=== PATIENT | female | born 1970 | race Caucasian/White ===

== ENCOUNTER → 2016-09-03 | Outpatient (CLI) | payer OTHER ==
[~2016-09-03] MED LIST: ATIVAN1 MG PO; IRON325 M1 PO; MAXARON FORTE1 CAP PO; NIFEREX-150150 MG PO; PERCOCET 325 MG1 TA2 PO; PRENATAL1 TA1 PO; PROVERA10 MG PO; STOOL SOFTENER100 MG PO
[2016-09-03 09:35] LABS: HEMATOCRIT 44.2 % (37.0-47.0); HEMOGLOBIN 14.4 g/dl (12.0-16.0); MEAN CELL VOLUME 83.4 fl (81.0-99.0); MEAN CORPUSCULAR HGB 27.2 pg (27.0-31.0); MEAN CORPUSCULAR HGB CONC 32.6 g/dl (33.0-37.0); MEAN PLATELET VOLUME 10.8 fl (9.6-12.3); RED BLOOD COUNT 5.3 10*6/uL (4.10-5.10); RED CELL DISTRI WIDTH 13.4 % (0-14.5)
[2016-09-03 10:01] LABS: ALKALINE PHOSPHATASE 76 U/L (45-117); BILIRUBIN, TOTAL 0.6 mg/dl (0.2-1.0); BUN 11 mg/dl (7-24); CARBON DIOXIDE 31 mmol/L (21-32); CHLORIDE 104 mmol/L (98-107); CHOLESTEROL 190 mg/dL (<200); EST GLOM FILT AFRICAN AMERICAN > 60 ml/min; GLUCOSE 110 mg/dL (65-99); HDL CHOLESTEROL 48 mg/dl (40-60); LDL CHOLESTEROL 123 mg/dL (9-159); POTASSIUM 3.7 mmol/L (3.5-5.1); SGOT/AST 21 IU/L (3-35); SGPT/ALT 26 U/L (12-78); SODIUM 142 mmol/L (136-145); TOTAL PROTEIN 7.5 gm/dL (6.4-8.2); TRIGLYCERIDES 93 mg/dl (<150); VLDL CHOLESTEROL 19 mg/dL (6-40)
[2016-09-03 10:09] LABS: VITAMIN D, 25-HYDROXY 26.8 ng/mL (30-100)
== END | disposition home or self-care (01) ==
LOC: LAB 09:12
PROVIDERS: Family Medicine
DX: Z13.220 Encounter for screening for lipoid disorders (principal); I10 Essential (primary) hypertension; R53.83 Other fatigue; E55.9 Vitamin D deficiency, unspecified; E78.00 Pure hypercholesterolemia, unspecified

== ENCOUNTER → 2016-12-31 | Outpatient (CLI) | payer OTHER ==
[2016-12-31 10:36] LABS: HEMOGLOBIN 14.5 g/dl (12.0-16.0); MEAN CELL VOLUME 82.7 fl (81.0-99.0); MEAN CORPUSCULAR HGB 27.9 pg (27.0-31.0); MEAN CORPUSCULAR HGB CONC 33.7 g/dl (33.0-37.0); MEAN PLATELET VOLUME 10.9 fl (9.6-12.3); RED BLOOD COUNT 5.2 10*6/uL (4.10-5.10); RED CELL DISTRI WIDTH 13.1 % (0-14.5); WHITE BLOOD COUNT 4.5 10*3/uL (4.8-10.8)
[2016-12-31 10:59] LABS: ALKALINE PHOSPHATASE 80 U/L (45-117); BILIRUBIN, TOTAL 0.7 mg/dl (0.2-1.0); BUN 17 mg/dl (7-24); CARBON DIOXIDE 31 mmol/L (21-32); CHLORIDE 106 mmol/L (98-107); CHOLESTEROL 178 mg/dL (<200); EST GLOM FILT AFRICAN AMERICAN > 60 ml/min; GLUCOSE 92 mg/dL (65-99); HDL CHOLESTEROL 49 mg/dl (40-60); LDL CHOLESTEROL 112 mg/dL (9-159); POTASSIUM 3.7 mmol/L (3.5-5.1); SGOT/AST 20 IU/L (3-35); SGPT/ALT 22 U/L (12-78); SODIUM 141 mmol/L (136-145); TOTAL PROTEIN 7.7 gm/dL (6.4-8.2); TRIGLYCERIDES 85 mg/dl (<150); VLDL CHOLESTEROL 17 mg/dL (6-40)
[2016-12-31 18:21] LABS: VITAMIN D, 25-HYDROXY 17.9 ng/mL (30-100)
== END | disposition home or self-care (01) ==
LOC: LAB 09:50
PROVIDERS: Family Medicine
DX: D64.9 Anemia, unspecified (principal); E78.00 Pure hypercholesterolemia, unspecified; E55.9 Vitamin D deficiency, unspecified; Z79.899 Other long term (current) drug therapy; R73.09 Other abnormal glucose

== ENCOUNTER → 2017-06-16 | Outpatient (CLI) | payer OTHER ==
[~2017-06-16] MED LIST changes: +AMLODIPINE BESY10 MG PO
[2017-06-16 10:01] LABS: HEMATOCRIT 45.1 % (37.0-47.0); HEMOGLOBIN 14.9 g/dl (12.0-16.0); MEAN CORPUSCULAR HGB 27.1 pg (27.0-31.0); MEAN PLATELET VOLUME 10.7 fl (9.6-12.3); RED BLOOD COUNT 5.5 10*6/uL (4.10-5.10); RED CELL DISTRI WIDTH 13.4 % (0-14.5); WHITE BLOOD COUNT 4.6 10*3/uL (4.8-10.8)
== END | disposition home or self-care (01) ==
LOC: LAB 09:49
PROVIDERS: Family Medicine
DX: E55.9 Vitamin D deficiency, unspecified (principal); D72.819 Decreased white blood cell count, unspecified

== ENCOUNTER 2017-06-22 15:02 | Emergency (ER) | payer OTHER ==
[~2017-06-22] VITALS: Ht 167.6 cm; Wt 72.6 kg
[~2017-06-22 15:02] MED LIST changes: -AMLODIPINE BESY10 MG PO
[2017-06-22] MEDS ORDERED: AMLODIPINE BESY10 MG PO (15:20)
[2017-06-22 15:53] LABS: BASO % 0.7 % (0.0-1.0); EOS # 0.2 10*3/uL (0.0-0.4); EOS % 2.7 % (1.0-4.0); HEMATOCRIT 42.1 % (37.0-47.0); HEMOGLOBIN 14.2 g/dl (12.0-16.0); LYMPH # 2.4 10*3/uL (1.3-4.4); LYMPH % 40.5 % (27.0-41.0); MEAN CELL VOLUME 82.1 fl (81.0-99.0); MEAN CORPUSCULAR HGB 27.7 pg (27.0-31.0); MEAN CORPUSCULAR HGB CONC 33.7 g/dl (33.0-37.0); MEAN PLATELET VOLUME 10.5 fl (9.6-12.3); MONO # 0.5 10*3/uL (0.1-1.0); MONO % 8.7 % (3.0-9.0); NEUT # 2.8 10*3/uL (2.3-7.9); NEUT % 47.1 % (47.0-73.0); PLATELET COUNT AUTOMATED 185 10*3/uL (130-400); RED BLOOD COUNT 5.13 10*6/uL (4.10-5.10); RED CELL DISTRI WIDTH 13.2 % (0-14.5); WHITE BLOOD COUNT 5.9 10*3/uL (4.8-10.8)
[2017-06-22 16:14] LABS: ALKALINE PHOSPHATASE 81 U/L (45-117); BUN 13 mg/dl (7-24); CHLORIDE 105 mmol/L (98-107); CREATININE 0.84 mg/dL (0.55-1.02); POTASSIUM 3.4 mmol/L (3.5-5.1); SGOT/AST 19 IU/L (3-35); SGPT/ALT 22 U/L (12-78); SODIUM 142 mmol/L (136-145); TOTAL PROTEIN 7.5 gm/dL (6.4-8.2)
[2017-06-22 16:18] LABS: TROPONIN I < 0.015 ng/ml (<0.045)
== END 2017-06-22 17:07 | disposition home or self-care (01) ==
LOC: ED 15:02
PROVIDERS: Physician Assistant
DX: B27.90 Infectious mononucleosis, unspecified without complication (principal); R94.6 Abnormal results of thyroid function studies

== ENCOUNTER → 2017-06-24 | Outpatient (CLI) | payer OTHER ==
[~2017-06-24] MED LIST changes: +AMLODIPINE BESY10 MG PO
[2017-06-24 10:18] LABS: HEMATOCRIT 44.9 % (37.0-47.0); HEMOGLOBIN 15.2 g/dl (12.0-16.0); MEAN CELL VOLUME 82.7 fl (81.0-99.0); MEAN CORPUSCULAR HGB CONC 33.9 g/dl (33.0-37.0); MEAN PLATELET VOLUME 10.3 fl (9.6-12.3); RED BLOOD COUNT 5.43 10*6/uL (4.10-5.10); RED CELL DISTRI WIDTH 13.6 % (0-14.5); WHITE BLOOD COUNT 4.9 10*3/uL (4.8-10.8)
[2017-06-24 10:37] LABS: ALBUMIN 4.2 gm/dl (3.1-4.5); ALKALINE PHOSPHATASE 90 U/L (45-117); BUN 11 mg/dl (7-24); CHLORIDE 106 mmol/L (98-107); CREATININE 0.81 mg/dL (0.55-1.02); FREE T4 0.76 ng/dl (0.76-1.46); POTASSIUM 3.9 mmol/L (3.5-5.1); SGOT/AST 19 IU/L (3-35); SGPT/ALT 24 U/L (12-78); SODIUM 143 mmol/L (136-145); TOTAL PROTEIN 8.2 gm/dL (6.4-8.2)
[2017-06-25 06:10] LABS: FREE T3 010389 3.1 pg/mL (2.0-4.4); THYROID PEROXIDASE (TPO) AB 236 IU/mL (0-34)
[2017-06-25 15:05] LABS: EPSTEIN-BARR VCA IGG AB >600.0 U/mL (0.0-17.9); EPSTEIN-BARR VCA IGM AB <36.0 U/mL (0.0-35.9)
== END | disposition home or self-care (01) ==
LOC: LAB 10:00
PROVIDERS: Family Medicine
DX: R53.83 Other fatigue (principal); R94.6 Abnormal results of thyroid function studies; R00.2 Palpitations

== ENCOUNTER → 2017-07-01 | Outpatient (CLI) | payer OTHER ==
--- NOTE | ~2017-07-01 | HM ---
[place], [place] HOLTER MONITOR REPORT NAME: HITESH SULLIVAN [facility] #: [id number] UNIT #: [id number] ROOM: DOCTOR: LISY AYON MD BIRTHDATE: [birth year] DOS: 07/01/2017 The recording was recorded from 07/01/2017 through 07/02/2017. The recording was analyzed on 07/05/2017 and interpreted and dictated on 07/05/2017. INDICATIONS: Palpitations. PROCEDURE: The patient underwent recording utilizing a Holter device for 24 hours. FINDINGS: The basic rhythm was normal sinus. Average heart rate was 72. The heart rate in sinus rhythm varied from 47-120 beats per minute. No ventricular arrhythmias were recorded. There was no ventricular tachycardia or PVC seen. Rare premature atrial contractions were noted. No prolonged pauses were seen and there was no SVT recorded. No diary was returned. IMPRESSION: 1. Normal 24-hour Holter monitor. 2. No diary returned to correlate symptoms with findings on the monitor. LISY AYON MD CM:HOLTER:HOLTER MONITOR REPORT [id number] LISY AYON MD
== END | disposition home or self-care (01) ==
LOC: CARD 12:53
DX: R00.2 Palpitations (principal)

== ENCOUNTER → 2017-10-04 | Outpatient (CLI) | payer OTHER ==
[2017-10-04 08:56] LABS: HEMATOCRIT 43.3 % (37.0-47.0); HEMOGLOBIN 14.2 g/dl (12.0-16.0); MEAN CORPUSCULAR HGB 27.2 pg (27.0-31.0); MEAN CORPUSCULAR HGB CONC 32.8 g/dl (33.0-37.0); MEAN PLATELET VOLUME 10.7 fl (9.6-12.3); RED BLOOD COUNT 5.22 10*6/uL (4.10-5.10); RED CELL DISTRI WIDTH 13.2 % (0-14.5)
[2017-10-04 09:23] LABS: ALKALINE PHOSPHATASE 78 U/L (45-117); BUN 10 mg/dl (7-24); CHLORIDE 104 mmol/L (98-107); CHOLESTEROL 190 mg/dL (<200); CREATININE 0.74 mg/dL (0.55-1.02); HDL CHOLESTEROL 54 mg/dl (40-60); LDL CHOLESTEROL 121 mg/dL (9-159); POTASSIUM 3.7 mmol/L (3.5-5.1); SGOT/AST 19 IU/L (3-35); SGPT/ALT 22 U/L (12-78); SODIUM 142 mmol/L (136-145); TRIGLYCERIDES 77 mg/dl (<150); VLDL CHOLESTEROL 15 mg/dL (6-40)
[2017-10-04 09:28] LABS: FREE T4 0.78 ng/dl (0.76-1.46)
== END | disposition home or self-care (01) ==
LOC: LAB 08:34
PROVIDERS: Family Medicine
DX: E03.9 Hypothyroidism, unspecified (principal); R53.83 Other fatigue; E78.00 Pure hypercholesterolemia, unspecified; E55.9 Vitamin D deficiency, unspecified

== ENCOUNTER → 2018-06-30 | Outpatient (CLI) | payer OTHER | END | disposition home or self-care (01) | LOC: RAD 09:31 | DX: N64.4 Mastodynia (principal); R07.81 Pleurodynia; R06.2 Wheezing; I10 Essential (primary) hypertension; E03.9 Hypothyroidism, unspecified ==

== ENCOUNTER → 2018-09-06 | Outpatient (CLI) | payer OTHER ==
[2018-09-06 10:45] LABS: HEMATOCRIT 46.1 % (37.0-47.0); MEAN CELL VOLUME 84.3 fl (81.0-99.0); MEAN CORPUSCULAR HGB 27.4 pg (27.0-31.0); MEAN CORPUSCULAR HGB CONC 32.5 g/dl (33.0-37.0); MEAN PLATELET VOLUME 10.7 fl (9.6-12.3); RED BLOOD COUNT 5.47 10*6/uL (4.10-5.10); RED CELL DISTRI WIDTH 13.1 % (0-14.5); WHITE BLOOD COUNT 4.9 10*3/uL (4.8-10.8)
[2018-09-06 11:03] LABS: ALBUMIN 3.9 gm/dl (3.1-4.5); BUN 13 mg/dl (7-24); CHLORIDE 108 mmol/L (98-107); CHOLESTEROL 189 mg/dL (<200); CREATININE 0.89 mg/dL (0.55-1.02); HDL CHOLESTEROL 42 mg/dl (40-60); LDL CHOLESTEROL 124 mg/dL (9-159); POTASSIUM 4.3 mmol/L (3.5-5.1); SGOT/AST 25 IU/L (3-35); SGPT/ALT 32 U/L (12-78); SODIUM 142 mmol/L (136-145); TRIGLYCERIDES 116 mg/dl (<150); VLDL CHOLESTEROL 23 mg/dL (6-40)
[2018-09-06 11:09] LABS: ALKALINE PHOSPHATASE 90 U/L (45-117); FREE T4 0.74 ng/dl (0.76-1.46); TOTAL PROTEIN 7.8 gm/dL (6.4-8.2)
[2018-09-06 12:27] LABS: VITAMIN D, 25-HYDROXY 33.4 ng/mL (30-100)
== END | disposition home or self-care (01) ==
LOC: LAB 10:15
PROVIDERS: Family Medicine
DX: E55.9 Vitamin D deficiency, unspecified (principal); R10.9 Unspecified abdominal pain; E03.9 Hypothyroidism, unspecified; E78.00 Pure hypercholesterolemia, unspecified; R53.83 Other fatigue

== ENCOUNTER → 2019-04-11 | Outpatient (CLI) | payer OTHER ==
[~2019-04-11] MED LIST changes: +LEVOTHYROXINE50 MCG PO
--- NOTE | ~2019-04-11 | ST ---
[place], [place] EXERCISE STRESS TEST REPORT NAME: HITESH SULLIVAN [facility] #: [id number] UNIT #: [id number] ROOM: DOCTOR: MUNIRA SHIRLEY MD BIRTHDATE: [birth year] DOS: 04/11/2019 The patient walked on the Hugo protocol, duration of 6 minutes 30 seconds. Heart rate is 150 more than 85% of predicted heart rate. Procedure terminated with completion of the protocol. Baseline cardiogram, sinus rhythm. With exercise, no new EKG changes. No chest pain. Blood pressure and heart rate response was normal with adequate double product. FINAL IMPRESSION: Normal exercise stress test without any evidence of ischemic changes in the EKG. No chest pain, no dysrhythmia. Blood pressure and heart rate response was normal. MUNIRA SHIRLEY MD CM:STRESS:EXERCISE STRESS TEST REPORT [id number] MARIUSZ SHIRLEY MD
--- NOTE | 2019-04-11 07:30 | NUR ---
INFORMED CONSENT OBTAINED FOR STANDARD GXT WITH DR. SHIRLEY. RESTING EKG SINUS YU WITH A SUPINE HR OF 59 WITH BP OF 124/74 AND HR OF 69 WITH BP OF 104/68 IN STANDING POSITION. PT COMPLETED 6:30 OF A 2:00 NATALIE PROTOCOL WITH COMPLETION OF 30 SECONDS OF STAGE IV AT 4.2 MPH AND 16% GRADE.REACHED A PEAK HR OF 151 WHICH IS 89% OF PREDICTED MAX WITH A PEAK BP OF 182/80. TEST TERMINATED BECAUSE OF FATIGUE. HAD NO CHEST PAIN OR ANY EKG CHANGES. LAST RECOVERY HR OF 82 WITH BP OF 132/68. HAS A GOOD EXERCISE TOLERANCE. NEGATIVE STANDARD STRESS TEST. IV DISCONTINUED AND DISCHARGED IN STABLE CONDITION.
== END | disposition home or self-care (01) ==
LOC: CARD 01:26
DX: R07.9 Chest pain, unspecified (principal)

== ENCOUNTER → 2019-06-23 | Outpatient (CLI) | payer OTHER | END | disposition home or self-care (01) | LOC: LAB 06-22 18:33 | DX: E03.9 Hypothyroidism, unspecified (principal) ==

== ENCOUNTER → 2020-09-30 | Outpatient (CLI) | payer OTHER | END | disposition home or self-care (01) | LOC: US 07:30 | PROVIDERS: ATTEND Nurse Practitioner Family | DX: K76.0 Fatty (change of) liver, not elsewhere classified (principal); K80.20 Calculus of gallbladder without cholecystitis without obstruction; K76.89 Other specified diseases of liver ==

== ENCOUNTER → 2021-02-12 | Outpatient (CLI) | payer OTHER | END | disposition home or self-care (01) | LOC: RAD 17:45 | PROVIDERS: ATTEND Nurse Practitioner Family | DX: R22.2 Localized swelling, mass and lump, trunk (principal); Z12.31 Encounter for screening mammogram for malignant neoplasm of breast ==

== ENCOUNTER → 2022-06-01 | Outpatient (CLI) | payer MEDICAID ==
[2022-06-01 09:06] LABS: BASO % 0.9 % (0.0-1.0); EOS # 0.2 10*3/uL (0.0-0.4); EOS % 5.2 % (1.0-4.0); LYMPH # 1.5 10*3/uL (1.3-4.4); LYMPH % 33.9 % (27.0-41.0); MEAN CELL VOLUME 84.8 fl (81.0-99.0); MEAN CORPUSCULAR HGB 28.2 pg (27.0-31.0); MEAN CORPUSCULAR HGB CONC 33.3 g/dl (33.0-37.0); MEAN PLATELET VOLUME 10.5 fl (9.6-12.3); MONO # 0.5 10*3/uL (0.1-1.0); MONO % 10.9 % (3.0-9.0); NEUT # 2.1 10*3/uL (2.3-7.9); NEUT % 48.6 % (47.0-73.0); PLATELET COUNT AUTOMATED 199 10*3/uL (130-400); RED BLOOD COUNT 5.07 10*6/uL (4.10-5.10); RED CELL DISTRI WIDTH 13.3 % (0-14.5); WHITE BLOOD COUNT 4.4 10*3/uL (4.8-10.8)
[2022-06-01 09:22] LABS: ALKALINE PHOSPHATASE 74 U/L (45-117); BUN 13 mg/dl (7-24); CHLORIDE 108 mmol/L (98-107); CHOLESTEROL 192 mg/dL (<200); CREATININE 0.78 mg/dL (0.55-1.02); LDL CHOLESTEROL 121 mg/dL (9-159); POTASSIUM 3.7 mmol/L (3.5-5.1); SGOT/AST 27 IU/L (3-35); SGPT/ALT 39 U/L (12-78); SODIUM 142 mmol/L (136-145); TOTAL PROTEIN 7.4 gm/dL (6.4-8.2); TRIGLYCERIDES 157 mg/dl (<150)
== END | disposition home or self-care (01) ==
LOC: LAB 08:37
PROVIDERS: ATTEND Nurse Practitioner Family
DX: Z12.31 Encounter for screening mammogram for malignant neoplasm of breast (principal); I10 Essential (primary) hypertension

== ENCOUNTER → 2022-09-11 | Outpatient (CLI) | payer MEDICAID ==
[2022-09-11 08:31] LABS: BASO % 0.7 % (0.0-1.0); EOS # 0.2 10*3/uL (0.0-0.4); EOS % 5.4 % (1.0-4.0); HEMATOCRIT 45.6 % (37.0-47.0); LYMPH # 1.6 10*3/uL (1.3-4.4); LYMPH % 39.2 % (27.0-41.0); MEAN CORPUSCULAR HGB 27.6 pg (27.0-31.0); MEAN CORPUSCULAR HGB CONC 32.9 g/dl (33.0-37.0); MEAN PLATELET VOLUME 10.5 fl (9.6-12.3); MONO # 0.4 10*3/uL (0.1-1.0); MONO % 10.8 % (3.0-9.0); NEUT # 1.8 10*3/uL (2.3-7.9); NEUT % 43.7 % (47.0-73.0); PLATELET COUNT AUTOMATED 206 10*3/uL (130-400); RED BLOOD COUNT 5.43 10*6/uL (4.10-5.10); RED CELL DISTRI WIDTH 13.1 % (0-14.5); WHITE BLOOD COUNT 4.1 10*3/uL (4.8-10.8)
[2022-09-11 08:51] LABS: ALKALINE PHOSPHATASE 78 U/L (46-116); BUN 9 mg/dl (9-23); CHLORIDE 102 mmol/L (98-107); CHOLESTEROL 214 mg/dL (<200); LDL CHOLESTEROL 149 mg/dL (9-159); POTASSIUM 3.8 mmol/L (3.4-5.1); SGPT/ALT 36 U/L (10-49); THYROID STIM HORMONE (HS) 8.368 uIU/ml (0.550-4.780); TOTAL PROTEIN 7.3 gm/dL (6.0-8.0); TRIGLYCERIDES 122 mg/dl (<150)
== END | disposition home or self-care (01) ==
LOC: LAB 08:18
PROVIDERS: ATTEND Nurse Practitioner Family
DX: I10 Essential (primary) hypertension (principal); E03.9 Hypothyroidism, unspecified

== ENCOUNTER → 2022-11-06 | Outpatient (CLI) | payer OTHER ==
[2022-11-06 10:15] LABS: BASO # 0.1 10*3/uL (0.0-0.1); BASO % 1.2 % (0.0-1.0); EOS # 0.2 10*3/uL (0.0-0.4); EOS % 4.4 % (1.0-4.0); HEMATOCRIT 44.2 % (37.0-47.0); LYMPH # 1.7 10*3/uL (1.3-4.4); LYMPH % 38.6 % (27.0-41.0); MEAN CORPUSCULAR HGB 28.3 pg (27.0-31.0); MEAN CORPUSCULAR HGB CONC 33.3 g/dl (33.0-37.0); MONO # 0.5 10*3/uL (0.1-1.0); NEUT # 1.9 10*3/uL (2.3-7.9); NEUT % 44.6 % (47.0-73.0); PLATELET COUNT AUTOMATED 216 10*3/uL (130-400); RED CELL DISTRI WIDTH 13.1 % (0-14.5); WHITE BLOOD COUNT 4.3 10*3/uL (4.8-10.8)
== END | disposition home or self-care (01) ==
LOC: LAB 09:07
PROVIDERS: ATTEND Nurse Practitioner Family
DX: I10 Essential (primary) hypertension (principal); E03.9 Hypothyroidism, unspecified; D72.819 Decreased white blood cell count, unspecified

== ENCOUNTER → 2022-12-03 | Outpatient (CLI) | payer OTHER | END | disposition home or self-care (01) | LOC: MAMMO 11:30 | PROVIDERS: ATTEND Nurse Practitioner Family | DX: N64.9 Disorder of breast, unspecified (principal); Z12.31 Encounter for screening mammogram for malignant neoplasm of breast ==

== ENCOUNTER → 2023-01-25 | Outpatient (CLI) | payer OTHER | END | disposition home or self-care (01) | LOC: US 01:53 | PROVIDERS: ATTEND Nurse Practitioner Family | DX: D17.23 Benign lipomatous neoplasm of skin and subcutaneous tissue of right leg (principal) ==

== ENCOUNTER → 2024-02-29 | Outpatient (CLI) | payer OTHER | END | disposition home or self-care (01) | LOC: MAMMO 15:00 | PROVIDERS: ATTEND Nurse Practitioner Family | DX: Z12.31 Encounter for screening mammogram for malignant neoplasm of breast (principal); I10 Essential (primary) hypertension; E03.9 Hypothyroidism, unspecified ==

== ENCOUNTER 2025-03-29 17:22 | Emergency (ER) | payer OTHER ==
[~2025-03-29] VITALS: Ht 165.1 cm; Wt 77.1 kg
[2025-03-29] MEDS ORDERED: Ondansetron Hydrochloride 4 MG/2 ML VIAL IV ONE (17:45)
[2025-03-29] MEDS ORDERED: diazePAM 5 MG TAB PO ONE (17:45)
[2025-03-29] MEDS ORDERED: SODIUM CHLORIDE 0.9% 1,000 ML IV ONE (17:45)
[2025-03-29 17:57] LABS: BASO # 0.0 10*3/uL (0.0-0.1); BASO % 0.5 % (0.0-1.0); EOS # 0.2 10*3/uL (0.0-0.4); EOS % 3.5 % (1.0-4.0); MEAN CELL VOLUME 86.5 fl (81.0-99.0); MEAN CORPUSCULAR HGB 27.5 pg (27.0-31.0); MEAN PLATELET VOLUME 10.5 fl (9.6-12.3); MONO # 0.6 10*3/uL (0.1-1.0); MONO % 10.7 % (3.0-9.0); NEUT # 2.6 10*3/uL (2.3-7.9); NEUT % 44.4 % (47.0-73.0); NUCLEATED RED BLOOD CELL 0.0 % (0.0-0.0); NUCLEATED RED BLOOD CELL 0.0 10*3/uL (0.0-0.0); PLATELET COUNT AUTOMATED 205 10*3/uL (130-400); RED CELL DISTRI WIDTH 13.2 % (0-14.5)
[2025-03-29 18:16] LABS: BUN 10 mg/dl (9-23)
[2025-03-29] MEDS ORDERED: ANTIVERT25 M2 PO (18:25)
== END 2025-03-29 18:53 | disposition home or self-care (01) ==
LOC: ED 17:22
PROVIDERS: Emergency Medicine
DX: H81.10 Benign paroxysmal vertigo, unspecified ear (principal); R11.2 Nausea with vomiting, unspecified; Z79.899 Other long term (current) drug therapy; Z90.711 Acquired absence of uterus with remaining cervical stump

== ENCOUNTER → 2025-04-27 | Outpatient (CLI) | payer OTHER ==
[~2025-04-27] MED LIST changes: +ANTIVERT25 M2 PO
== END ==
LOC: MRI 00:06
PROVIDERS: ATTEND Internal Medicine
DX: R42 Dizziness and giddiness (principal)